=== PATIENT | female | born 1990 | race Caucasian/White ===

== ENCOUNTER 2022-10-21 03:47 | Observation (INO) | payer OTHER, BC, SELFPAY ==
--- NOTE | ~2022-10-21 | US_ITS ---
Pelvic ultrasound. Clinical History: Vaginal bleeding, second trimester Technique: Realtime transabdominal and transvaginal scanning of the pelvis was performed. Color flow Doppler and Doppler spectral analysis were performed. Findings: The uterus is anteverted, and contains an intrauterine gestation. Placenta is anteriorly lo cated towards the fundus. Femur length is 3.5 cm. Abdominal circumference is 16.6 cm. Biparietal diam eter is 5.1 cm. Head circumference is 19.6 cm. Amniotic fluid index is 13.9. Cervix and appears close d, but measures only approximately 2.9 cm in length. heart rate is 145 bpm. There is moderate t o large amount of complex fluid in the vagina. Neither ovary seen. No adnexal mass seen. There is no evidence of free fluid in the cul de sac. Impression: Live intrauterine gestation with estimated gestational age of 21 weeks 3 days. heart rate is 14 5 bpm. Amniotic fluid index is 13.9. Cervix measures 2.9 cm in length. Moderate to large amount of complex fluid in the vagina, which could be blood products. Reviewed, dictated and finalized at [facility]. Impression: Live intrauterine gestation with estimated gestational age of 21 weeks 3 days. heart rate is 145 bpm. Amniotic fluid index is 13.9. Cervix measures 2.9 cm in length. Moderate to large amount of complex fluid in the vagina, which could be blood p roducts.
[2022-10-21 04:00] VITALS: BMI 37.4
[2022-10-21 05:31] LABS: Basophils Percent Auto 0.4 % (0.2-1.2); Eosinophils Absolute Auto 0.2 K/mm3 (0-0.3); Eosinophils Percent Auto 2.3 % (0-4.4); Immature Granulocyte Absolute 0.04 K/mm3 (0.00-0.031); Immature Granulocyte Percent A 0.4 % (0-0.5); Lymphocytes Absolute Auto 1.94 K/mm3 (0.9-3.2); Lymphocytes Percent Auto 19.1 % (18.3-44.2); Mean Corpuscular HGB Conc 34.4 g/dl (32-36); Mean Corpuscular Hemoglobin 33.4 pg (26-34); Mean Corpuscular Volume 97.3 fl (80-100); Monocytes Absolute Auto 0.7 K/mm3 (0.1-0.6); Monocytes Percent Auto 6.7 % (2.6-8.5); Neutrophils Absolute Auto 7.2 K/mm3 (1.3-6.7); Neutrophils Percent Auto 71.1 % (45.5-73.1); Platelet Count Result 232 k/mm3 (150-375); Red Blood Count 3.29 M/mm3 (4.2-5.4); Red Cell Distribution Width 11.6 % (11.5-14.5); White Blood Count 10.2 K/mm3 (4.5-10.0)
[2022-10-21 05:46] LABS: Alanine Aminotransferase 27 U/L (6-35); Albumin Level 3.4 g/dL (3.5-5.1); Alkaline Phosphatase 69 U/L (38-126); Anion Gap 6 mmol/L (8-16); Aspartate Amino Transferase 28 U/L (14-36); Bilirubin,Total 0.4 mg/dL (0.2-1.3); Blood Urea Nitrogen 5 mg/dL (7-17); Calcium 8.3 mg/dL (8.4-10.2); Carbon Dioxide 23 mmol/L (22-30); Chloride 107 mmol/L (98-107); Estimated Glomerular Filt Rate > 60; Glucose 78 mg/dL (65-110); Potassium 3.5 mmol/L (3.4-5.0); Sodium 136 mmol/L (137-145)
--- NOTE | 2022-10-21 05:58 | OBADM ---
This patient, Joi Valdez, admitted to the OB room [facility] for observation. Patient/family oriented to hospital policies and general routines including ID bracelet, bed and alarms, visiting hours, pain management, procedures, bathroom and other care routines, personal items, smoking policy, room service/diet, and visiting hours. Patient/Family are encouraged to report perceived risks to care and to ask questions if they do not understand what they are told or what they should do.
--- NOTE | 2022-10-21 06:43 | PC.NURSE ---
0410 heart tones obtained using hand held doppler. FHTs 145-155. 0415 Gush of bloody fluid noted. 0635 Discussed with patient about ultrasound findings. SROM noted. heart tones obtained using hand held doppler. FHTs 145-155.
--- NOTE | 2022-10-21 06:48 | PC.NURSE ---
[address] PARHAM TO UPDATE ABOUT PT ARRIVAL AND CURRENT PT STATUS. ORDERS RECEIVED FOR CBC, CMP, T&S, AND ULTRASOUND FOR PALAK AND GESTATIONAL AGE. 0606 DR. PARHAM UPDATED ABOUT SROM NOTED PER ULTRASOUND.
[2022-10-21 07:32] VITALS: BP 124/67; PULSE 110
[2022-10-21 08:35] VITALS: TEMP 37.1
--- NOTE | 2022-10-21 09:02 | PM.IMHP ---
H&P: HPI History of Present Illness Date/Time: 10/21/22 09:02 Chief Complaint: Vaginal bleeding Narrative: 32 y/o at 20 6/7 weeks by IVF/ET dating, with EDC 03/04/23. She had a gush of bloody fluid at 0320 today. On arrival here at [facility]&D, there was no active bleeding, but the nurse's impression was SROM. No pain. No fever. She is a walk-in patient here, usuallya patient of Dr. Singleton in [place]. Ultrasound exam here shows haskins IUP, breech, with EFW 417 g. Fundal placenta normal-appearing. Review of Systems Review of Systems: All systems reviewed & are unremarkable except as noted in HPI and below PMFSH Past Medical History Medical History Asthma Migraines Meds Vital Signs Vital Signs - 24 hr 10/21/22 07:32 Pulse Rate 110 H Blood Pressure 124/67 Exam Const: Orientation/consciousness: patient oriented x3 Other: Well-developed, well-nourished female in no acute distress. Neck: Thyroid: thyroid normal Lymphatic: no lymphadenopathy noted (in neck, axilla or inguinal nodes) Resp: Effort & Inspection: normal respiratory effort Auscultation: clear to auscultation bilaterally Cardio: Rate: regular rate Rhythm: regular rhythm Heart sounds: S1 normal heart sound present and S2 normal heart sound present GI: Other: ABD: Soft, nontender, gravid, nondistended. FHR 140 bpm. TOCO: no contractions. FH just above umb. No guarding or rebound tenderness. No hepatosplenomegaly. : General: Yes no CVA tenderness Other: Speculum exam: gross ROM with yxbi-qasik-wnperp fluid. No active bleeding. Cervix visually closed. Back/Spine/Pelvis: Back: no CVA tenderness Skin: General skin exam: normal color and no rashes or lesions noted Neuro: General: patient oriented x3 Extrem: Other: Extremities: nontender with no edema Psych: Mental Status: mental status grossly normal Affect: normal affect H&P: Results Labs Labs: Short CBC 10/21/22 Range/Units 05:21 WBC 10.2 H (4.5-10.0) K/mm3 Hgb 11.0 L (12.0-15.0) g/dL Hct 32.0 L (37.0-47.0) % Plt Count 232 (150-375) k/mm3 BMP 10/21/22 05:21 Sodium 136 L Potassium 3.5 Chloride 107 Carbon Dioxide 23 BUN 5 L Creatinine 0.50 L Glucose 78 Calcium 8.3 L Liver Function 10/21/22 Range/Units 05:21 Total Bilirubin 0.4 (0.2-1.3) mg/dL AST 28 (14-36) U/L ALT 27 (6-35) U/L Alkaline Phosphatase 69 (38-126) U/L Albumin 3.4 L (3.5-5.1) g/dL Assessment and Plan Assessment and plan (1) SROM (spontaneous rupture of membranes): Status: Acute Assessment and Plan: A: IUP at 20 6/7 weeks with SROM, not joellen. P: Discussed with Dr. Lake, MFM fellow at [facility]. Reviewed her situation, and also reviewed with Joi and her , Corinne. Because she is currently clinically stable, and the baby is previable, we have decided she will be discharged from [place] and drive to [facility] to be seen in their OB triage unit. Reviewed risks, benefits and alternatives in detail.
--- NOTE | 2022-10-21 09:30 | PC.NURSE ---
0845--Dr. Garrison at bedside. Plan of care discussed. Speculum exam performed.
--- NOTE | 2022-10-21 09:37 | PC.NURSE ---
0730--Pt up to bathroom-reports bleeding and small clot.
--- NOTE | 2022-10-21 09:42 | PC.NURSE ---
0900--Dr. Garrison at bedside. Car transfer acceptable per Dr. Garrison and admitting hospital.
--- NOTE | 2022-10-21 09:48 | PC.NURSE ---
0832--Pt c/o mild cramping-monitors applied.
--- NOTE | 2022-10-21 10:32 | PC.NURSE ---
0941--Pt DC'd to car per wheelchair for transfer to [place] under care of Dr. Lake.
--- NOTE | 2022-11-09 00:15 | P.PNOB_ITS ---
OB - Triage/Final Diagnosis Visit Information Comments/Additional reasons for admission: I have assessed the risk for this patient, Joi Valdez, and determined that she would benefit from observation care. Evaluation Laboratory results: Laboratory Tests 10/21/22 05:21 WBC 10.2 H RBC 3.29 L Hgb 11.0 L Hct 32.0 L MCV 97.3 MCH 33.4 MCHC 34.4 RDW 11.6 Plt Count 232 MPV 9.0 Immature Gran % (Auto) 0.4 Neut % (Auto) 71.1 Lymph % (Auto) 19.1 Jennings % (Auto) 6.7 Eos % (Auto) 2.3 Baso % (Auto) 0.4 Lymph # (Auto) 1.94 Jennings # (Auto) 0.7 H Eos # (Auto) 0.2 Baso # (Auto) 0.0 Abs Immat Gran (auto) 0.04 H Absolute Neuts (auto) 7.2 H Absolute Nucleated RBC 0.0 Nucleated RBC % 0.0 Sodium 136 L Potassium 3.5 Chloride 107 Carbon Dioxide 23 Anion Gap 6 L BUN 5 L Creatinine 0.50 L Estim Creat Clear Calc Not Reportable Estimated GFR > 60 Glucose 78 Calcium 8.3 L Total Bilirubin 0.4 AST 28 ALT 27 Alkaline Phosphatase 69 Total Protein 7.0 Albumin 3.4 L Blood Type O Positive Antibody Screen Negative Final Diagnosis (1) Spotting affecting : Code(s): O26.859 - Spotting complicating , unspecified trimester Status: Acute
== END 2022-10-21 09:50 | disposition other institution (70) ==
PROVIDERS: Admitting Provider Obstetrics & Gynecology; PCP Family Medicine; Visit Provider Obstetrics & Gynecology
DX: O42.912 Preterm premature rupture of membranes, unspecified as to length of time between rupture and onset of labor, second trimester (principal); Z3A.20 20 weeks gestation of pregnancy
CPT/HCPCS: 36415; 76816; 80053; 85025; 86850; 86900; 86901; G0378; G0379